=== PATIENT | female | born 1985 | race Caucasian/White ===

== ENCOUNTER 2020-06-10 11:15 | Emergency (ER) | payer OTHER ==
[~2020-06-10 11:15] MED LIST: ULTRAM50 MG PO
== END 2020-06-10 13:43 | disposition home or self-care (01) ==
LOC: FER 11:15
DX: R53.1 Weakness (principal); F17.290 Nicotine dependence, other tobacco product, uncomplicated; Z88.5 Allergy status to narcotic agent
CPT/HCPCS: 72141; 72146; 72148

== ENCOUNTER 2020-07-19 18:48 | Emergency (ER) | payer OTHER ==
[2020-07-19 19:27] LABS: BILIRUBIN NEGATIVE (NEGATIVE); BLOOD NEGATIVE Ery/uL (NEGATIVE); CLARITY HAZY (CLEAR); COLOR YELLOW (YELLOW); GLUCOSE (U) NORMAL (NORMAL); LEUKOCYTES NEGATIVE Leu/uL (NEGATIVE); NITRITE NEGATIVE (NEGATIVE); PROTEIN NEGATIVE (NEGATIVE); SPECIFIC GRAVITY >=1.030 (1.001-1.030); UROBILINOGEN 0.2 mg/dL (0.2-1.0)
[2020-07-19 19:29] LABS: BASOPHIL 0.6 % (0-2); EOSINOPHIL 1.7 % (0-5); HCT 29.7 % (37.0-47.0); HGB 9.4 g/dl (12.5-16.0); MCH 25.4 pg (25.0-31.0); MCHC 31.6 g/dL (32.0-36.0); MCV 80.3 fL (78.0-100.0); MONOCYTE 8.1 % (0-12); MPV 10.8 fL (6.0-9.5); NEUTROPHIL 56.1 % (41-80); NRBC 0; PLT 284 K/uL (150-400); WBC 6.6 K/uL (4.0-10.5)
[2020-07-19 20:05] LABS: CREATININE 0.79 mg/dL (0.51-0.95); POTASSIUM 3.3 mmol/L (3.5-5.1)
[2020-07-19 20:06] LABS: ALBUMIN 4.1 g/dL (3.4-5.0); BILIRUBIN - TOTAL 0.4 mg/dL (0.2-1.0); GLOBULIN (CALCULATION) 3.7 g/dL; TOTAL PROTEIN 7.8 g/dL (6.4-8.2)
[2020-07-19] MEDS ORDERED: IBUPROFEN800 MG PO (21:48)
== END 2020-07-19 22:22 | disposition home or self-care (01) ==
LOC: FER 18:48
PROVIDERS: Nurse Practitioner Family
DX: O99.63 Diseases of the digestive system complicating the puerperium (principal); K43.9 Ventral hernia without obstruction or gangrene; K80.20 Calculus of gallbladder without cholecystitis without obstruction; Z98.890 Other specified postprocedural states; Z88.5 Allergy status to narcotic agent
CPT/HCPCS: 36415; 80053; 81003; 85025; J7030; Q9967

== ENCOUNTER 2021-06-28 12:17 | Emergency (ER) | payer OTHER ==
[~2021-06-28 12:17] MED LIST changes: +IBUPROFEN800 MG PO
[2021-06-28 13:16] LABS: BASOPHIL 0.6 % (0-2); EOSINOPHIL 1.3 % (0-5); HCT 30.9 % (37.0-47.0); HGB 9.9 g/dl (12.5-16.0); LYMPHOCYTE 24.5 % (15-48); MCH 25.7 pg (25.0-31.0); MCV 80.3 fL (78.0-100.0); MONOCYTE 7.7 % (0-12); MPV 11.8 fL (6.0-9.5); NEUTROPHIL 65.7 % (41-80); NRBC 0; PLT 189 K/uL (150-400); RBC 3.85 M/uL (4.20-5.40); RDW 16.7 % (11.5-14.0); WBC 6.2 K/uL (4.0-10.5)
[2021-06-28 13:27] LABS: ALBUMIN 4.2 g/dL (3.4-5.0); BILIRUBIN - TOTAL 0.3 mg/dL (0.2-1.0); BUN/CREAT RATIO (CALC) 15.3 RATIO; CREATININE 0.85 mg/dL (0.51-0.95); GLOBULIN (CALCULATION) 3.1 g/dL; POTASSIUM 3.8 mmol/L (3.5-5.1); TOTAL PROTEIN 7.3 g/dL (6.4-8.2)
[2021-06-28] MEDS ORDERED: ONDANSETRON HCL4 MG PO ×2 (15:50→15:53)
[2021-06-28] MEDS ORDERED: NORCO 5-325 TA1 EACH PO ×2 (15:50→15:53)
== END 2021-06-28 16:44 | disposition home or self-care (01) ==
LOC: FER 12:17
PROVIDERS: Nurse Practitioner Family
DX: K42.9 Umbilical hernia without obstruction or gangrene (principal); Z88.5 Allergy status to narcotic agent
CPT/HCPCS: 36415; 80053; 85025; J1885; J2405; J7030; Q9967